=== PATIENT | male | born 1990 | race Caucasian/White ===

== ENCOUNTER 2020-10-12 11:11 | Emergency (ER) | payer MEDICAID ==
[~2020-10-12] VITALS: Ht 180.3 cm; Wt 61.4 kg
[2020-10-12 13:32] VITALS: BP 128/77
[2020-10-12] MEDS ORDERED: METR500T PO (13:51)
== END 2020-10-12 14:11 | disposition home or self-care (01) ==
LOC: ER 11:12
DX: K04.7 Periapical abscess without sinus (principal)
CPT/HCPCS: 99283